=== PATIENT | female | born 1975 | race Caucasian/White ===

== ENCOUNTER → 2017-08-23 08:29 | Outpatient (CLI) | payer OTHER, SELFPAY ==
--- NOTE | 2017-08-23 08:35 | HPBI_ITS ---
MAMMOGRAPHY - BILATERAL SCREENING REASON FOR EXAM: Female, 42 years old. Routine annual screening examination. PERTINENT HISTORY: Mother with breast cancer. TECHNIQUE: Digital bilateral breast scott (3D mammographic acquisition) in the CC and MLO projections. 2-D mediolateral oblique (MLO) and craniocaudad (CC) views of both breasts were obtained. CAD: Full Field Digital Mammography with Computer Added Detection was performed. COMPARISON: Comparison is made with prior study dated August 19, 2016 and July 20, 2015. FINDINGS: Breast Composition: There are scattered areas of fibroglandular density. There are no dominant masses or suspicious calcifications. Stable bilateral benign appearing axillary lymph nodes. No other significant abnormalities are identified. There has been no significant change since the prior study. HPBI/SCREENING MAMM (CAD), BILAT IMPRESSION: Stable bilateral screening mammogram. Yearly follow-up mammogram recommended. (A) ASSESSMENT CATEGORY: BIRADS Category 2: Benign. A letter regarding these results will be sent to the patient by the facility within 30 days. Approximately 10% of breast cancers are not detected by mammography. A normal mammogram should not delay biopsy of a clinically suspicious abnormality. [id number] Electronically Signed: Franck Sandy MD at 8:16 EDT Tel [phone], Service support ,
== END ==
PROVIDERS: Visit Provider Obstetrics & Gynecology
DX: Z12.31 Encounter for screening mammogram for malignant neoplasm of breast (principal)
CPT/HCPCS: 77063; 77067

== ENCOUNTER → 2021-04-04 | Outpatient (CLI) | payer OTHER, SELFPAY ==
[2021-04-09 15:23] LABS: HPV Reflexed? NOT INDICATED
== END | disposition home or self-care (01) ==
LOC: LABSPEC 12:23
PROVIDERS: Visit Provider Obstetrics & Gynecology
DX: Z12.4 Encounter for screening for malignant neoplasm of cervix (principal)
CPT/HCPCS: 88175; G0145

== ENCOUNTER → 2021-04-27 15:34 | Outpatient (CLI) | payer SELFPAY, OTHER ==
--- NOTE | 2021-04-27 15:38 | BI_ITS ---
MAMMOGRAPHY - BILATERAL SCREENING REASON FOR EXAM: Female, 45 years old. Routine annual screening examination. PERTINENT HISTORY: Mother with breast cancer. TECHNIQUE: Digital bilateral breast hernan (3D mammographic acquisition) in the CC and MLO projections. 2-D mediolateral oblique (MLO) and craniocaudad (CC) views of both breasts were obtained. CAD: Full Field Digital Mammography with Computer Added Detection was performed. COMPARISON: Comparison is made with prior study dated 08/23/2017 and 08/19/2016. FINDINGS: Breast Composition: There are scattered areas of fibroglandular density. There are no dominant masses or suspicious calcifications. Stable small benign-appearing bilateral axillary lymph nodes. No other significant abnormalities are identified. There has been no significant change since the prior study. BI/SCRN MAMM (CAD)W/HERNAN BILAT IMPRESSION: Stable bilateral screening mammogram. Yearly follow-up mammogram recommended. (A) ASSESSMENT CATEGORY: BIRADS Category 2: Benign. A letter regarding these results will be sent to the patient by the facility within 30 days. Approximately 10% of breast cancers are not detected by mammography. A normal mammogram should not delay biopsy of a clinically suspicious abnormality. [id number] Electronically Signed: Franck Sandy MD at 8:21 EST , Service support ,
== END ==
PROVIDERS: Referring Provider Obstetrics & Gynecology; Visit Provider Obstetrics & Gynecology
DX: Z12.31 Encounter for screening mammogram for malignant neoplasm of breast (principal)
CPT/HCPCS: 77063; 77067

== ENCOUNTER 2023-04-14 13:13 | Emergency (ER) | payer OTHER, SELFPAY ==
[2023-04-14 13:13] VITALS: BP 160/88; PULSE 63; RESP 16; TEMP 36.4; O2SAT 98; BMI 29.0
--- NOTE | 2023-04-14 13:35 | EKG12_ITS ---
Test Reason : Blood Pressure : / mmHG Vent. Rate : 060 BPM Atrial Rate : 060 BPM P-R Int : 122 ms QRS Dur : 088 ms QT Int : 424 ms P-R-T Axes : 055 -08 026 degrees QTc Int : 424 ms Normal sinus rhythm Normal ECG Confirmed by LUNA FERNANDEZ MD ([id number]), purchasing expeditor ZONIA RICHTER ([id number]) on 04/16/2023 6:53:29 AM Referred By: Confirmed By:LUNA FERNANDEZ MD
[2023-04-14] MEDS: 0.9% Normal Saline (1000mL) 1,000 ML 1000 ML IV (13:55)
--- NOTE | 2023-04-14 14:01 | ED.VIS.FEGU ---
HPI <ASHISH Flor - Last Filed: 04/14/23 16:24> HPI - Female History of Present Illness Chief Complaint: Vag Bld, Preg Narrative Narrative: Patient is a 47-year-old female with no significant medical history who is a 6 para 4, last time she gave was in 2013. Patient states that over the last year she has been having irregular menses. For the last 3 days, patient states she has been having significant amount of vaginal bleeding with blood clots. Today, the patient just got done doing her laundry, she then sat down, and almost had a near syncopal episode. Secondary to this pain, she is here for evaluation. PFSH <ASHISH Flor - Last Filed: 04/14/23 16:24> PFSH Home Medications vits,calcium no.78-iron fumarate-folic acid 29 mg-1 mg tablet (Prenatabs FA) 1 tab PO DAILY 09/21/13 [History Last Taken 02/06/14 12:00] oxycodone-acetaminophen 5 mg-325 mg tablet 1 - 2 tab PO Q4H PRN PRN Moderate Pain ##30 02/09/14 [Rx Last Taken Unknown] sennosides 8.6 mg-docusate sodium 50 mg tablet (Stool Softener-Stimulant Laxative) 100 mg (1.7065 x 8.6-50 mg) PO DAILY PRN Constipation ##60 02/09/14 [Rx Last Taken Unknown] cephalexin 500 mg capsule 500 mg PO TID #21 caps 04/14/23 [Rx Last Taken Unknown] Allergy/AdvReac Type Severity Reaction Status Date / Time apple Allergy Food Verified 04/14/23 13:15 Allergy parrish [cherries] Allergy Food Verified 04/14/23 13:15 Allergy pecan nut Allergy Food Verified 04/14/23 13:15 Allergy walnut Allergy Food Verified 04/14/23 13:15 Allergy Social History Smoking Status: Never smoker ROS <ASHISH Flor - Last Filed: 04/14/23 16:24> ROS ED ROS Narrative Constitutional: Negative for fever, chills, weight loss, weakness Eyes: Negative for vision loss, vision change, double vision ENT: Negative for any sore throat, ear pain, congestion Cardiovascular: Negative for any chest pain, tightness, palpitations Respiratory: Negative for any cough, sputum production, hemoptysis, dyspnea, dyspnea on exertion, orthopnea Gastrointestinal: Negative for any abdominal pain, nausea, vomiting, diarrhea, constipation, blood in stool, blood in vomit : Negative for any urinary frequency, dysuria, retention, blood in urine. Positive for vaginal bleeding Muscle skeletal: Negative for any muscle joint pain, stiffness, myalgias, arthralgias, neck pain, back pain Neurological: Negative for any headache, syncope, numbness or tingling, dizziness. Positive for near syncope Skin: Negative for any rashes, lumps, itching, abrasions, lacerations Psychiatric: Negative for any depression, anxiety, stress, suicidal ideation, homicidal ideation Hematologic: Negative for any easy bruising, excessive bruising, easy bleeding Allergies: Negative for any eczema, hives, rash EXAM <ASHISH Flor - Last Filed: 04/14/23 16:24> Physical Exam Narrative Exam Narrative: Vital signs reviewed. HEET: Head normocephalic atraumatic, TMs clear bilaterally. Posterior pharynx is clear, moist mucous membranes. Nares clear bilaterally. Neck: Supple with no lymphadenopathy or tenderness. No signs of meningismus, negative jolt sign. Cardiac: Regular rate and rhythm no murmurs gallops or rubs, equal peripheral pulses bilaterally. Respiratory: Lungs clear to auscultation bilaterally. No chest tenderness. Abdomen: Soft, nontender, nondistended. No abdominal bruit or pulsatile masses. No hepatosplenomegaly Extremities: No peripheral edema, no signs of gross trauma or deformity. Active full range of motion of all extremities. Neuro: Cranial nerves II through XII intact, no focal neurological deficits. Skin: Clean dry and intact with no rash, purpura, petechiae, vesicles or pustules. Backs/flank: No CVA tenderness, no midline spinal tenderness, no deformity. Psych: Normal mood and affect. No SI, HI or acute psychosis. Const Vital Signs: 04/14/23 13:13 04/14/23 14:13 04/14/23 15:54 Temperature 97.5 F L Temperature Source Temporal Pulse Rate 63 Respiratory Rate 16 18 18 Blood Pressure 160/88 H Blood Pressure Mean 112 Pulse Ox 98 Oxygen Delivery Method Room Air Positive well nourished and well developed General Appearance ED: well developed <Dr. Al Benavides DO - Last Filed: 04/14/23 15:19> Physical Exam Const Vital Signs: 04/14/23 13:13 04/14/23 14:13 04/14/23 15:54 Temperature 97.5 F L Temperature Source Temporal Pulse Rate 63 Respiratory Rate 16 18 18 Blood Pressure 160/88 H Blood Pressure Mean 112 Pulse Ox 98 Oxygen Delivery Method Room Air MDM <ASHISH Flor - Last Filed: 04/14/23 16:24> MDM Lab Data Labs: Laboratory Results - last 24 hr 04/14/23 13:46 WBC 7.6 RBC 4.03 L Hgb 12.3 Hct 37.6 MCV 93.3 MCH 30.5 MCHC 32.7 RDW Std Deviation 41.5 RDW Coeff of Jaylan 12.0 Plt Count 246 MPV 9.9 Immature Gran % (Auto) 0.400 Neut % (Auto) 75.6 H Lymph % (Auto) 16.6 L Bourbon % (Auto) 4.8 Eos % (Auto) 2.2 Baso % (Auto) 0.4 Absolute Neuts (auto) 5.8 Absolute Lymphs (auto) 1.27 Nucleated RBC % 0 Sodium 139 Potassium 3.8 Chloride 104 Carbon Dioxide 32.0 Anion Gap 3 L BUN 11 Creatinine 0.61 Estim Creat Clear Calc 101.49 Est GFR (MDRD) Af Amer 134 Est GFR (MDRD) Non-Af 111 BUN/Creatinine Ratio 18.0 Glucose 109 H Calcium 8.8 Serum , Qual NEGATIVE Urine Color Red Urine Clarity Cloudy Urine pH 6.5 Ur Specific [place] 1.015 Urine Protein 100 H Urine Glucose (UA) Normal Urine Ketones 5 H Urine Occult Blood 250 H Urine Nitrite Positive H Urine Bilirubin Negative Urine Urobilinogen 1 H Ur Leukocyte Esterase 100 H Urine RBC 25-50 SEEN Urine WBC 10-25 SEEN Ur Squamous Epith Cells 0-5 SEEN Urine Bacteria 1+ Urine Mucus 0 SEEN Blood Type O POSITIVE Antibody Screen NEGATIVE EKG EKG shows a rate of 60 bpm, SD 122 ms, QRS duration 88 ms, no acute ST elevation, no acute infarct noted: Attestation: I personally reviewed and interpreted this EKG as follows: Treatment and Re-Evaluation Narrative: Patient appears generally well, patient appears nontoxic, vital signs are stable. Presenting to the emergency department for significant vaginal bleeding for the last 3 days. Patient will receive basic laboratory values concerning for any new onset anemia, patient received electrolytes, as well as a type and screen. Urinalysis will be cleared to rule out any UTI. Patient will receive a serum to ensure there is no . Patient's laboratory values show a normal CBC with a hemoglobin of 12.3, hematocrit 37.6. Patient's laboratory values were unremarkable, patient's serum was negative. Patient's urinalysis was positive for infection with positive nitrites, 25-50 RBCs, 10-25 white blood cells, 1+ bacteria. This will be sent for culture. Patient be started on Keflex. At this time, patient is stable. Vital signs remained stable, patient is nontachycardic. Patient will follow-up this upcoming Friday with her [employer]. She was given strict return precaution. At this time, is no evidence of any severe hemorrhage, anemia. Patient be diagnosed with dysmenorrhea, UTI. <Dr. Al Benavides, DO - Last Filed: 04/14/23 15:19> [facility] Narrative Medical decision making narrative: I have personally performed a face to face assessment of the patient and have reviewed the ELIANA Note. I performed a substantive portion of the visit including all aspects of the following. My garibay findings include: History: Patient presents with vaginal bleeding that has been getting worse over the past few days. Patient states that she is passing some clots. Patient admits to some mild pain over the lower abdomen. Patient denies any back pain. Patient denies any nausea or vomiting. Patient denies any dysuria. Patient denies any fevers or chills. Exam: Vital signs are stable. Patient is afebrile. Patient is in no acute distress. Oral mucosa is pink and moist. Neck is supple. Trachea is midline. There is no JVD. Heart was regular rate and rhythm. Lungs are clear and equal bilaterally. Abdomen is soft. Bowel sounds are normal. There is mild suprapubic tenderness. There is no rebound or guarding noted. Cranial nerves II through XII are intact. There are no focal motor or sensory deficits noted. Medical Decision Making: Differential diagnosis includes dysfunctional uterine bleeding, anemia, ectopic , and ovarian cyst. CBC will be obtained to assess for leukocytosis and anemia. Basic metabolic profile will be obtained to assess for electrolyte abnormality and renal function. Urinalysis will be obtained to assess for urinary tract infection and hematuria. Serum hCG will be obtained to assess for . Type and screen will be obtained to assess for blood type. Patient was given IV fluids. CBC was reviewed and was within normal limits. Basic metabolic profile was reviewed and was within normal limits. Serum hCG was reviewed and was negative. Urinalysis was reviewed. There are positive nitrites with a leukocyte esterase of 100. Occult blood was 250. There are 25-50 red blood cells and 10-25 white blood cells. There is 1+ bacteria. Urine culture was ordered. Patient was given a dose of Rocephin here. Patient was given a prescription for Keflex. Patient was instructed to follow-up with her [employer] in 3 to 5 days. Patient understood and was agreeable with the plan. All questions were answered. Lab Data Labs: Laboratory Results - last 24 hr 04/14/23 13:46 WBC 7.6 RBC 4.03 L Hgb 12.3 Hct 37.6 MCV 93.3 MCH 30.5 MCHC 32.7 RDW Std Deviation 41.5 RDW Coeff of Jaylan 12.0 Plt Count 246 MPV 9.9 Immature Gran % (Auto) 0.400 Neut % (Auto) 75.6 H Lymph % (Auto) 16.6 L [place] % (Auto) 4.8 Eos % (Auto) 2.2 Baso % (Auto) 0.4 Absolute Neuts (auto) 5.8 Absolute Lymphs (auto) 1.27 Nucleated RBC % 0 Sodium 139 Potassium 3.8 Chloride 104 Carbon Dioxide 32.0 Anion Gap 3 L BUN 11 Creatinine 0.61 Estim Creat Clear Calc 101.49 Est GFR (MDRD) Af Amer 134 Est GFR (MDRD) Non-Af 111 BUN/Creatinine Ratio 18.0 Glucose 109 H Calcium 8.8 Serum , Qual NEGATIVE Urine Color Red Urine Clarity Cloudy Urine pH 6.5 Ur Specific [place] 1.015 Urine Protein 100 H Urine Glucose (UA) Normal Urine Ketones 5 H Urine Occult Blood 250 H Urine Nitrite Positive H Urine Bilirubin Negative Urine Urobilinogen 1 H Ur Leukocyte Esterase 100 H Urine RBC 25-50 SEEN Urine WBC 10-25 SEEN Ur Squamous Epith Cells 0-5 SEEN Urine Bacteria 1+ Urine Mucus 0 SEEN Blood Type O POSITIVE Antibody Screen NEGATIVE Discharge Plan Triage Chief Complaint: Vag Bld, Preg ED Midlevel Provider: Aslanides,Omar ED Provider: Al Benavides Dx/Rx/DC Orders Clinical Impression: Urinary tract infection, Dysmenorrhea, Abnormal vaginal bleeding Instructions: ED Dysfunctional Uterine Bleeding, ED MENSTRUAL CRAMPING, ED Urinary Retention, Female Prescriptions: New cephalexin 500 mg capsule 500 mg PO TID Qty: 21 0RF No Action sennosides-docusate sodium [Stool Softener-Stimulant Laxat] 1 TABLET tablet 100 mg PO DAILY PRN (Reason: Constipation) Qty: 60 0RF oxycodone-acetaminophen 1 TABLET tablet 1 - 2 tab PO Q4H PRN PRN (Reason: Moderate Pain ) Qty: 30 0RF vit,[id number] [Prenatabs FA] 1 TABLET tablet 1 tab PO DAILY Patient Comments: pt uses a pnv 3x's day - from [employer] , has folic acid and DHA Primary Care Provider: Lindsay Bolton Referrals: Care Physician,No Primary [Non-Staff] - Activity Restrictions/Additional Instructions: Please follow-up with your [employer] this week. Return for worsening uncontrolled bleeding. Take antibiotics until finished. Disposition Disposition: Home, Self Care
[2023-04-14 14:07] LABS: Mucous, Urine 0 SEEN /hpf (<or=2+)
[2023-04-14 14:10] LABS: Absolute Lymphocyte Count 1.27 X10^3/uL (0.83-4.51); Absolute Neutrophil Count 5.8 X10^3/uL (2.0-7.7); Basophil# 0.03 X10^3/uL; Basophil% 0.4 % (0-1); Eosinophil# 0.17 X10^3/uL; Eosinophils% 2.2 % (0-5); Hematocrit 37.6 % (37-47); Hemoglobin 12.3 g/dL (12.0-15.0); Lymphocyte # 1.27 X10^3/ul (0.83-4.51); Lymphocyte % 16.6 % (19-41); Mean Corp Hgb Conc 32.7 g/dL (32-36); Mean Corpuscular Hgb 30.5 pg (27.0-32.0); Mean Corpuscular Volume 93.3 fL (81-99); Mean Platelet Vol. 9.9 fl (6.2-12.0); Monocyte# 0.37 X10^3/uL; Monocyte% 4.8 % (0-10); NRBC Flagged by Analyzer 0 % (0-5); Neutrophil # 5.76 X10^3/uL (2.7-7.7); Neutrophil % 75.6 % (47-70); Platelet Count 246 K/mm3 (150-450); RBC Distribution Width SD 41.5 fl (35.1-43.9); Red Blood Count 4.03 M/mm3 (4.2-5.4); White Blood Count 7.6 K/mm3 (4.4-11.0)
[2023-04-14 14:11] LABS: Color, Urine Red (Yellow); Glucose, Dipstick Normal (Normal); Ketone-Dipstick 5 mg/dl (Negative); Leukocyte Esterase-Dipstick 100 /ul (Negative); Nitrite-Dipstick Positive (Negative); Occult Blood-Urine 250 /ul (Negative); Protein-Dipstick 100 mg/dl (Negative); Specific Gravity, Urine 1.015 (1.002-1.030); Urine Bilirubin Dipstick Negative (Negative); Urine Clarity Cloudy (Clear); Urine Urobilinogen 1 mg/dl (Normal); Urine pH 6.5 (5.0 - 8.0)
[2023-04-14 14:13] VITALS: RESP 18
[2023-04-14 14:17] LABS: Bacteria 1+ /hpf (None Seen); Red Blood Cells-Urine 25-50 SEEN /hpf (0-5); White Blood Cells 10-25 SEEN /hpf (0-5)
[2023-04-14 14:18] LABS: Squamous Epithelial Cells - UA 0-5 SEEN /hpf (5-10)
[2023-04-14 14:25] LABS: Anion Gap 3 (5-15); BUN 11 mg/dL (7-18); Calcium,Total 8.8 mg/dL (8.5-10.1); Chloride 104 mmol/L (98-107); Creatinine, Serum 0.61 mg/dL (0.55-1.02); EST Glomerular Filtration Rate 111 mL/min (>60); Est Glom Filt Rate - Afr Amer 134 mL/min (>60); Estimated Creatinine Clearance 101.49 ml/min; Glucose 109 mg/dL (74-106); Potassium 3.8 mmol/L (3.5-5.1); Sodium Level 139 mmol/L (136-145)
[2023-04-14 14:28] LABS: Internal QC Validated? YES +Cl - CLEAR BKGD; Pregnancy, Serum, hCG Quali. NEGATIVE Negative
[2023-04-14 15:54] VITALS: RESP 18
[2023-04-14] MEDS: Cephalexin 250 MG Capsule 500 MG PO (16:37)
== END 2023-04-14 16:42 | disposition home or self-care (01) ==
PROVIDERS: Nurse Practitioner; Emergency Provider Emergency Medicine; PCP Family Medicine; Visit Provider Emergency Medicine
DX: N39.0 Urinary tract infection, site not specified (principal); N93.9 Abnormal uterine and vaginal bleeding, unspecified; N94.6 Dysmenorrhea, unspecified
CPT/HCPCS: 80048; 81001; 84703; 85025; 86850; 86900; 86901; 87086; 93005; 96360; 99282; J7030; A4216

== ENCOUNTER 2023-06-13 05:50 | Day surgery (SDC) | payer SELFPAY, OTHER ==
--- NOTE | 2023-06-13 | EMB_PTH ---
PATHOLOGY RESULTS PATIENT: BRITTANY COOPER LOC: [facility] [place] U#:[id number] AGE/SX: 47/F ROOM: RE06/13/[address]: Dr. Destiney Calderon DO : 1975 BED: DIS: 06/13/2023 SPEC #: [id number] RECD: 06/13/23 12:02 STATUS: KEENAN MICKY #: [id number] [place]: 06/13/23 00:[address]: Destiney Calderon DEPT: SURGICAL PATHOLOGY RECD BY: Jessi Tavarez ENTERED: 06/13/23 12:05 SP TYPE: ENDOM BX/C LILLIANA DR: Dr. 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 Rare fragments of endocervix with metaplasia. Rare fragment of benign squamous mucosa. AM:samuel 06/17/2023 MICROSCOPIC DESCRIPTION Slides are reviewed. GROSS DESCRIPTION Received in fixative is one container labeled with the patient's name and designated endometrial curettings. The specimen consists multiple fragments of hemorrhagic soft tissue that in aggregate measure 4.0 x 3.0 x 0.3 cm. The entire specimen is submitted in two cassettes. / SJ:samuel 06/13/2023 TC:5 CPT: 97977
--- OUTSIDE RECORDS SUMMARY | 2023-06-13 05:53 | XMS RPT_ITS | CCD ---
Author Name Unknown Address [address] [facility] [address] [place] [address] Organization [facility] Care Team Providers Care General Assembler Installer Name Role Phone HERNÁN GUTIERREZ MD Admitting Unavailable HERNÁN GUTIERREZ MD Primary Care Unavailable HERNÁN GUTIERREZ MD Consulting Unavailable HERNÁN GUTIERREZ MD Attending Unavailable PROVIDER, UNKNOWN Consulting Unavailable PROVIDER, UNKNOWN Consulting Unavailable PROVIDER, UNKNOWN Consulting Unavailable MAYLIN SHARMA Admitting Unavailable CHANI SHARMARY T Primary Care Unavailable MAYLIN SHARMA Attending Unavailable HERNÁN GUTIERREZ MD Consulting Unavailable PROVIDER, UNKNOWN Consulting Unavailable PROVIDER, UNKNOWN Consulting Unavailable PROVIDER, UNKNOWN Consulting Unavailable Unavailable Primary Care Provider Unavailabl e NONI, ELANA Attending Unavailable SYED CALDERON Attending Unavailable NONI, ELANA Attending Unavailable NONI, ELANA Referring Unavailable NONI, ELANA Referring Unavailable Allergies Allergy Classification Reported Allergen(s) Allergy Type Date of Onset Reaction(s) Facility (9 sources) tree nut, unspecified; Translations: [TREE NUTS] Drug Allergy 04-01-2023 Swelling, Itching, Shortness of Breath [facility] Medications Completed/Discontinued Medications Medication Drug Class(es) Dates Sig (Normalized) Sig (Original) norethindrone acetate 5 mg oral tablet (4 sources) Start: 05-15-2023 take 1 tablet by mouth once daily norethindrone (AYGESTIN) 5 mg tablet Take 1 tablet by mouth once daily. 30 tablet 0 05/15/2023 Active Problems Problem Classification Problem Date Documented Date Episodic/Chronic Conditions associated with dizziness or vertigo (3 sources) Benign paroxysmal vertigo, bilateral; Translations: [Benign paroxysmal vertigo, bilateral] Onset: 01-15-2022 Episodic Immunizations and screening for infectious disease (2 sources) Patient encounter status; Translations: [Encounter for screening for human papillomavirus (HPV)] 04-01-2023 Episodic Menstrual disorders (3 sources) Irregular periods; Translations: [Irregular menstruation, unspecified] Onset: 04-18-2023 04-01-2023 Chronic Nonmalignant breast conditions (1 source) Breast finding ; Translations: [Dense breast tissue] 04-01-2023 Episodic Other screening for suspected conditions (not mental disorders or infectious disease) (2 sources) Cancer cervix screening status; Translations: [Encounter for screening for malignant neoplasm of cervix] Onset: 04-18-2023 04-01-2023 Episodic Unclassified (1 source) Dense breast tissue; Translations: [Dense breast tissue] Onset: 04-18-2023 Results Test Name Value Interpretation Reference Range Facil ity Vital Signs Date Time Vital Sign Value Performing Clinician Facgiulia litmiguel 04-01-2023 10:59-0400 Body height 164 cm Elana Roanoke LADLE POURER.WEB WEAVER Work Phone: [facility] 04-01-2023 10:59-0400 Body weight 82.1 kg Elana Roanoke LADLE POURER.WEB WEAVER Work Phone: [facility] 04-01-2023 10:59-0400 Diastolic blood pressure 84 mm[Hg] Elana Roanoke LADLE POURER.WEB WEAVER Work Phone: [facility] 04-01-2023 10:59-0400 Systolic blood pressure 130 mm[Hg] Elana Noni LADLE POURER.WEB WEAVER Work Phone: [facility] Encounters Encounter Date Encounter Type Care Provider Facility Start: 06-02-2023 End: 06-02-[address] [facility] Facility:[facility] Start: 05-26-2023 Telephone encounter Marcela Katz MD Work Phone: OB/Gynecology Procedures Date Procedure Procedure Detail Performing Clinician Start: 04-18-2023 Us transvaginal Elana cordova LADLE POURER.WEB WEAVER Work Phone: Plan of Treatment Date Care Activity Detail Author Start: 04-01-2028 HPV Testing HPV Testing [facility] Start: 04-01-2028 Pap Testing Pap Testing [facility] Start: 04-18-2024 Mammography Mammogram Screening [facility] Start: 02-14-2023 Influenza [facility] Start: 06-16-2022 Depression Assessment Depression Assessment [facility] Start: 2019 Cologuard (FIT-DNA) Cologuard (FIT-DNA) [facility] Start: 2019 Colonoscopy Colonoscopy [facility] Start: 2019 Colorectal Cancer Screening Colorectal Cancer Screening [facility] Start: [address] Colonography [facility] Start: 2019 Diabetes Screening Diabetes Screening [facility] Start: 2019 Fecal Occult Blood Fecal Occult Blood [facility] Start: 2019 Lipid 1996 panel - Serum or Plasma Lipid Screening [facility] Start: 2019 Sigmoidoscopy Sigmoidoscopy [facility] Start: 2014 Mammography Mammogram Screening [facility] Start: 08-24-2007 Pap Testing Pap Testing [facility] Start: 2004 HPV Testing HPV Testing [facility] Start: 1993 Urine microalbumin profile DTaP,Tdap,Td Vaccine (1 - Tdap) [facility] Start: 1992 Hepatitis C Screening Hepatitis C Screening [facility] Start: 1992 HIV Screening HIV Screening [facility] Start: 02-02-1975 Covid-19 Vaccine (#1) Covid-19 Vaccine (#1) [facility] Start: 1974 Hepatitis B Vaccine (1 of 3 - 3-dose series) Hepatitis B Vaccine (1 of 3 - 3-dose series) [facility] End: 04-30-2024 FELICITAS SCREENING W HERNAN FELICITAS SCREENING W HERNAN Radiology Routine Encounter for screening mammogram for breast cancer Dense breast tissue 1 Occurrences starting 04/01/2023 until 04/30/2024 [facility] Work Phone: Payers Date Payer Category Payer Unknown 119 2022 Unknown [facility] [employer] [id number] 2022-Present [address] [place] [address] Indemnity [id number] 1974 Unknown [id number] 1974 Unknown [id number] Social History Date Type Detail Facility [facility]: [facility] Start: 04-01-2023 Tobacco use and exposure Smoke less tobacco non-user [facility] Start: 04-01-2023 Alcohol intake Current non-dr audio director of alcohol (finding) [facility] Start: 04-01-2023 History of Social function [facility] Start: 04-01-2023 Tobacco use panel [facility] National Score (1-10 0), lower number is lower risk 32 [facility] Start: 1975 Sex Assigned At Not on file C [facility] Clinical Notes 04-01-2023 to 06-02-2023 Telephone Encounter - Emily Preciado RN - 05/26/2023 10:53 AM ESTTelephone Encounter - Elana Cheney APRN.WEB WEAVER - 05/26/2023 10:49 AM ESTLetter - Coordinator, Mammography - 04/18/2023 11:31 AM EDT Note Date & Type Note Facility 06-02-2023 Note HNO ID: [id number] Author: Syed Calderon MD Service: ? Author Type: Physician Type: Progress Notes Filed: 06/02/2023 5:47 PM Note Text: DATE OF SERVICE: June 02, 2023 PROBLEM: DUB, uterine polyp PAST SURGICAL HISTORY: PAST SURGICAL HISTORY Procedure Laterality Date - DILATION AND CURETTAGE DXAND/THER NONOBSTETRIC Dilation AND curettage - LAPS ABD PRTMANDOMENTUM DX W/WO SPEC BR/WA SPX Laparoscopy - [facility] INCL POST CARE PAST MEDICAL HISTORY: PAST MEDICAL HISTORY Diagnosis Date - NEGATIVE MEDICAL HISTORY SUBJECTIVE: Daily bleeding. Light while taking Aygestin BID. No heavy bleeding at this time SOCIAL HISTORY: Social History Tobacco Use - Smoking status: Never - Smokeless tobacco: Never Substance Use Topics - Alcohol use: No - Drug use: No Pelvic US: RESULT: Uterus: -Size: 8.6 x 5.6 x 6.5 cm -Orientation: Retroverted -Endometrial echo complex: Evaluation of the endometrium was adequate. Suggestion of a polyp at the fundus measuring up to 1 cm. The endometrial echo complex measured 1.0 cm. -Cervix: Nabothian cysts present, otherwise unremarkable. -Adenomyosis assessment: There are no sonographic findings of adenomyosis. -Fibroids: There are no fibroids. Right Ovary: 2.8 x 2.3 x 2.4 cm - Normal sonographic appearance with physiologic follicles. Doppler imaging showed normal arterial and venous flow throughout the ovary. Left Ovary: 3.6 x 2.7 x 3.3 cm - Normal sonographic appearance with physiologic follicles. Doppler imaging showed normal arterial and venous flow throughout the ovary. Free Fluid: No abnormal free fluid is present. OBJECTIVE: VITALS: BP 110/70 Pulse 78 Resp 18 Ht 5' 5 (1.651 m) Wt 184 lb 12.8 oz (83.8 kg) LMP 09/23/2014 BMI 30.75 kg/m? HEENT: Normocephalic, atraumatic, Mucus membranes moist without lesions. NECK: Soft and Supple. No adenopathy , thyromegaly or bruits. SKIN: No lesions. CHEST: Clear to auscultation. No wheezes or rales. Good air exchange. HEART: Regular rate and rhythm No S3 or S4. No gallops or rubs. BACK: Nontender with no CVA tenderness. ABDOMEN: Soft, non-tender, non-distended, no masses, no hepatosplenomegaly. LOWER EXTREMITIES: There was no pitting edema, no palpable cords and no skin changes. ASSESSMENT: pre op PLAN: 1) Discussed hysteroscopy, polypectomy, DANDC. She declines progesterone IUD at this time but will consider if bleeding not improved post op. The rationale for the proposed surgery was discussed in addition to risks, benefits, and alternatives. General pre- and post-operative care was reviewed. Questions were answered. After discussion, the patient indicated a desire to proceed with the planned surgery. Syed Calderon DO Medical Decision Making: Problems: Moderate: New problem with uncertain prognosis Risk: Moderate: Decision on minor surgery w/ risk factors Medical Decision Making Level: 4 - Moderate [facility] 05-26-2023 Miscellaneous Notes Patient notified and voiced understanding of below. Emily Preciado RN Yes, she can take the Aygestin twice a day. Elana Cheney APRN.CNP Patient scheduled for surgery 06/13 preop with 06/02. C/o heavy bleeding changing her pad at least every hour sometimes every thirty minutes. Passing clots the size of a quarter and c/o cramping 10/23. Has not taken any motrin/tylenol. Denies CP, dizziness or SOB. Patient aware to call back or go to ED if these symptoms occur. Has been taking the aygestin tablets daily and asking if she can take more than one a day or what else she can do for her bleeding during this time. Please advise. Kennedi Delcid RN documented in this encounter [facility] 05-15-2023 Miscellaneous Notes Patient notified and voiced understanding. Emily Preciado RN Yes, she can take the Aygestin and I will send more in for her. This medication is safe with her history. Elana Cheney APRN.CNP Patient called with c/o heavy bleeding that started last night. Changing her pad every one hour or less. Denies CP, , dizziness, or fatigue. She has some Aygestin tablets left. States it really helped stop her bleeding. Surgery isn't until 06/13 with . Patient asking if it's safe to take the Aygestin up until her surgery date. If so, she would like it sent to [facility] pharmacy in [place]. Also, asking if safe to take with her hx of varicose veins and blood clots in . Francesca Pires RN documented in this encounter [facility] 05-06-2023 Miscellaneous Notes Patient notified. KENNEDI DELCID RN Aygestin sent to pharmacy. Elana Cheney APRN.CNP Patient started bleeding again yesterday. Initially wasn't heavy, but became heavy now the middle of the night. Changing pad about about every 1 hour. Denies chest pain, shortness of breath, dizziness or fatigue. Does feel a little weak. States RM told her to call in with any heavy bleeding and she can prescribe medication to help. [facility] [place]. Please advise. Sandra Lau RN documented in this encounter [facility] 04-25-2023 Note HNO ID: [id number] Author: Elana Cheney APRN.CNP Service: ? Author Type: Nurse Practitioner Type: Progress Notes Filed: 04/25/2023 12:52 PM Note Text: Spoke with pt via phone. Reviewed US results: Suggestion of a polyp at the fundus measuring up to 1 cm. The endometrial echo complex measured 1.0 cm. Discussed hysteroscopy, polypectomy procedure with pt, she would like to proceed with this. Surgery sheet done and given to radiology scheduler. Informed pt that she would be contacted by the office for pre-op and surgery date. Elana Cheney APRN.CNP [facility] 04-22-2023 Miscellaneous Notes Patient notified and voiced understanding. Patient scheduled for phone call from provider this Wednesday 04/25. FYI. Emily Preciado RN Left message for patient to call office. Sandra Lau RN Please let the patient know that her ultrasound shows a polyp in the uterus which is likely the reason for the irregular bleeding and spotting in between. Can you check with patient and see if there is a time that I can call her to discuss her options. And set the visit up as a telephone visit. Elana Cheney APRN.CNP documented in this encounter [facility] 04-18-2023 Note HNO ID: [id number] Author: Jenny Lee RT(R) Service: ? Author Type: Technologist Type: Progress Notes Filed: 04/18/2023 9:32 AM Note Text: Radiology Service Progress Note PATIENT NAME: Brittany Tena DATE OF SERVICE: April 18, 2023 TIME: 9:32 AM PATIENT IDENTITY VERIFICATION COMPLETED USING TWO (2) IDENTIFIERS: Name and Date of confirmed by patient verbally. FALL SCREENING: Has the patient had 2 falls in the last year or 1 fall with injury or currently using an Ambulatory Assistive Device (Walker, Cane, Wheelchair, Crutches, etc.)? No PATIENT GENDER DATA: Female. status: : No status: NO. PATIENT RELEVANT IMPLANT DATA REVIEWED: Not Applicable RADIOLOGY DEPARTMENT: Mammography PERIPHERAL IV DATA: Not applicable SIGNED BY: RT Liana(R) April 18, 2023 9:32 AM [facility] 04-18-2023 Miscellaneous Notes April 18, 2023 PID: [id number] Brittany Tena [address] [place] [address] Dear Darinel, We are pleased to inform you that the results of your recent breast imaging exam on 04/18/2023 are normal. Early detection of cancer is very important. We also understand recommendations regarding breast cancer screening are controversial. Please discuss with your primary care provider which strategy is best for you and whether a mammogram is right for you. Your imaging studies and report will be kept on file at [facility] as part of your permanent medical record and are available for your continuing care. Thank you for allowing us to help in meeting your health care needs. Sincerely, Dr. Jarquin Interpreting Radiologist [facility] (Normal over 40) documented in this encounter [facility] 04-18-2023 Note HNO ID: [id number] Author: Catherine Ramos RDMS Service: ? Author Type: Magneto Electrician Type: Progress Notes Filed: 04/18/2023 11:35 AM Note Text: Radiology Service Progress Note PATIENT NAME: Brittany eTna DATE OF SERVICE: April 18, 2023 TIME: 11:35 AM PATIENT IDENTITY VERIFICATION COMPLETED USING TWO (2) IDENTIFIERS: Name and Date of confirmed by patient verbally. FALL SCREENING: Has the patient had 2 falls in the last year or 1 fall with injury or currently using an Ambulatory Assistive Device (Walker, Cane, Wheelchair, Crutches, etc.)? No PATIENT GENDER DATA: Female. status: : No status: NO. PATIENT RELEVANT IMPLANT DATA REVIEWED: Not Applicable RADIOLOGY DEPARTMENT: Ultrasound PERIPHERAL IV DATA: Not applicable SIGNED BY: Catherine Ramos RDMS RVT April 18, 2023 11:35 AM [facility] 04-18-2023 History of Presen t illness Narrative Radiology Service Progress Note PATIENT NAME: Brittany Tena DATE OF SERVICE: April 18, 2023 TIME: 11:35 AM PATIENT IDENTITY VERIFICATION COMPLETED USING TWO (2) IDENTIFIERS: Name and Date of confirmed by patient verbally. FALL SCREENING: Has the patient had 2 falls in the last year or 1 fall with injury or currently using an Ambulatory Assistive Device (Walker, Cane, Wheelchair, Crutches, etc.)? No PATIENT GENDER DATA: Female. status: : No status: NO. PATIENT RELEVANT IMPLANT DATA REVIEWED: Not Applicable RADIOLOGY DEPARTMENT: Ultrasound PERIPHERAL IV DATA: Not applicable SIGNED BY: Catherine Ramos RDMS RVT April 18, 2023 11:35 AM documented in this encounter [facility] 04-14-2023 Miscellaneous Notes Patient called in and reported she went to [place] ED. Kennedi Delcid RN Left message for patient to call office. KENNEDI DELCID RN She needs to go to the ED for evaluation and blood work. Elana Cheney APRN.CNP Patient called reporting heavy bleeding saturating pads in an hour or less the past three days and passing clots the size of an egg or bigger. Feeling weak but denies any chest pain or sob. Denies any cramping or pain. Patient was supposed to have pelvic ultrasound last Friday but was sick and had to cancel and rescheduled for this Friday. Do you want patient evaluated in office or what recommendations do you have? Please advise. Kennedi Delcid RN documented in this encounter [facility] 04-01-2023 Note HNO ID: [id number] Author: Elana Cheney APRN.CNP Service: ? Author Type: Nurse Practitioner Type: Progress Notes Filed: 04/01/2023 11:37 AM Note Text: Brittany is a 47 year old who presents for an annual gynecologic exam with complaints, irregular bleeding. Menses: irregular cycle every 2-6 weeks with some spotting in between. Contraception: none HPV vaccine: No Last Pap: 08/31/2002 normal HPV: N/A History of abnormal pap: No Last mammogram: done at [facility] normal results Sexually active: Yes Pain with intercourse: No Postcoital bleeding: No Hot flashes: No Night sweats: Yes OB History T0 L0 SAB0 IAB0 Ectopic0 Multiple0 Live Births0 Locks Inspector History LMP: 09/23/2014, Having periods Age at Menarche: Age at First : Age at Menopause: Locks Inspector History Comments: Sexual Activity: Yes; Male Contraception: No contraception data on record PAST MEDICAL HISTORY Diagnosis Date NEGATIVE MEDICAL HISTORY PAST SURGICAL HISTORY Procedure Laterality Date DANDC, DIAG AND/OR THERAPEUTIC Dilation AND curettage L'SCOPE DX W/WO BRUSHINGS/WASHINGS Laparoscopy FAMILY HISTORY Problem Relation Age of Onset Breast Cancer Mother Heart Mother leaky valve Hypertension Father None Daughter None Daughter SOCIAL HISTORY Social History Tobacco Use Smoking status: Never Substance Use Topics Alcohol use: No Drug use: No REVIEW OF SYSTEMS Abdomen: No abdominal pain, nausea, vomiting, diarrhea, or constipation. No bloating, early satiety, indigestion, or increased flatulence. Bladder: No dysuria, gross hematuria, urinary frequency, urinary urgency, or incontinence. Breast: No breast lumps, nipple d/c, overlying skin changes, redness or skin retraction. Allergies and current medication updated:Yes EXAM: LMP 09/23/2014 GENERAL: pleasant, female in no apparent distress HEENT: Normocephalic, atraumatic, mucus membranes moist, and no lesions NECK: Supple, full range of motion, no adenopathy, and thyroid normal DERMATOLOGY: Normal, without lesions, non-icteric, and non-hirsute BREAST: soft, non-tender, symmetric, no dominant mass, normal nipple-areolar complex, no lymphadenopathy, and no nipple discharge CHEST: Normal inspiratory effort ABDOMEN: soft, non-tender, and no masses PELVIC: external genitalia normal, normal Bartholin's glands, urethra, [place]'s glands, no vulvar lesions, no cervical lesions, physiologic discharge present, normal appearing perineal body and perianal region, cervical prolapse 1st degree BIMANUAL: uterus normal size, shape and consistency, no adnexal masses, non-tender, and no cervical motion tenderness RECTOVAGINAL: deferred. NEURO: alert and oriented x3,exam grossly non-focal EXTREMITIES: normal ASSESSMENT/PLAN: 1) Health maintenance: Pap done with HPV. Mammogram ordered. Nutrition, exercise and routine health maintenance exams reviewed. 2) Contraception: none. Contraceptive options reviewed and information provided. 3) STD screening: Declined STD check. 4) Follow up one year or sooner as needed 5) Pelvic US ordered for irregular bleeding Elana Cheney APRN.DAVID [facility] 04-01-2023 History of Presen t illness Narrative Brittany is a 47 year old who presents for an annual gynecologic exam with complaints, irregular bleeding. Menses: irregular cycle every 2-6 weeks with some spotting in between. Contraception: none HPV vaccine: No Last Pap: 08/31/2002 normal HPV: N/A History of abnormal pap: No Last mammogram: done at [facility] normal results Sexually active: Yes Pain with intercourse: No Postcoital bleeding: No Hot flashes: No Night sweats: Yes OB History T0 L0 SAB0 IAB0 Ectopic0 Multiple0 Live Births0 Locks Inspector History LMP: 09/23/2014, Having periods Age at Menarche: Age at First : Age at Menopause: Locks Inspector History Comments: Sexual Activity: Yes; Male Contraception: No contraception data on record PAST MEDICAL HISTORY Diagnosis Date NEGATIVE MEDICAL HISTORY PAST SURGICAL HISTORY Procedure Laterality Date D&C, DIAG AND/OR THERAPEUTIC Dilation & curettage L'SCOPE DX W/WO BRUSHINGS/WASHINGS Laparoscopy FAMILY HISTORY Problem Relation Age of Onset Breast Cancer Mother Heart Mother leaky valve Hypertension Father None Daughter None Daughter SOCIAL HISTORY Social History Tobacco Use Smoking status: Never Substance Use Topics Alcohol use: No Drug use: No REVIEW OF SYSTEMS Abdomen: No abdominal pain, nausea, vomiting, diarrhea, or constipation. No bloating, early satiety, indigestion, or increased flatulence. Bladder: No dysuria, gross hematuria, urinary frequency, urinary urgency, or incontinence. Breast: No breast lumps, nipple d/c, overlying skin changes, redness or skin retraction. Allergies and current medication updated:Yes EXAM: LMP 09/23/2014 GENERAL: pleasant, female in no apparent distress HEENT: Normocephalic, atraumatic, mucus membranes moist, and no lesions NECK: Supple, full range of motion, no adenopathy, and thyroid normal DERMATOLOGY: Normal, without lesions, non-icteric, and non-hirsute BREAST: soft, non-tender, symmetric, no dominant mass, normal nipple-areolar complex, no lymphadenopathy, and no nipple discharge CHEST: Normal inspiratory effort ABDOMEN: soft, non-tender, and no masses PELVIC: external genitalia normal, normal Bartholin's glands, urethra, [place]'s glands, no vulvar lesions, no cervical lesions, physiologic discharge present, normal appearing perineal body and perianal region, cervical prolapse 1st degree BIMANUAL: uterus normal size, shape and consistency, no adnexal masses, non-tender, and no cervical motion tenderness RECTOVAGINAL: deferred. NEURO: alert and oriented x3,exam grossly non-focal EXTREMITIES: normal ASSESSMENT/PLAN: 1) Health maintenance: Pap done with HPV. Mammogram ordered. Nutrition, exercise and routine health maintenance exams reviewed. 2) Contraception: none. Contraceptive options reviewed and information provided. 3) STD screening: Declined STD check. 4) Follow up one year or sooner as needed 5) Pelvic US ordered for irregular bleeding Elana Cheney APRN.CNP documented in this encounter [facility] Diagnosis Irregular menstrual cycle [facility] (narrative)* Diagnostic Procedure Only (Routine) - Authorized Specialty Diagnoses / Procedures Referred By Navjot messina Referred To Contact US IMAGING Diagnoses Irregular menstrual cycle Procedures US FEMALE PELVIS TRANSVAG US TRANSVAGINAL Elana Cheney APRN.CNP [address] [place] [address] [id number] Referral ID Status Reason Start Date Expiration Date Visits Requested Visits Authorized [id number] Authorized Auto-Generat ed Referral 3 04/30/2024 1 1 * Diagnostic Procedure Only (Routine) - Denied Specialty Diagnoses / Procedures Referred By Navjot messina Referred To Contact [facility] Diagnoses Encounter for screening mammogram for breast cancer Dense breast tissue Procedures FELIICTAS SCREENING W HERNAN SCREENING DIGITAL BREAST TOMOSYNTHESIS BI SCREENING MAMMOGRAPHY BI 2-VIEW BREAST INC CAD Elana Cheney APRN.CNP [address] [place] [address] [facility] [address] [place] [address] Referral ID Status Reason Start Date Expiration Date V isits Requested Visits Authorized [id number] Denied Auto-Generate d Referral 04/01/2023 04/30/2024 1 0 [facility] Summary Purpose Family History No Family History Records FoundNo Family History Records FoundNo Family History Records Found Advance Directives No Advanced Directives Records FoundNo Advanced Directives Records FoundNo Advanced Directives Records Found Additional Source Comments INFORMATION SOURCE (unrecogn ized section and content) DATE CREATED AUTHOR AUTHOR'S ORGANIZ ATION 03/18/2022 [facility] DATE CREATED AUTHOR AUTHOR'S ORGANIZ ATION 06/04/2023 [facility] Source Comments (unrecognize d section and content) In the event this informatio n is protected by the Federal Confidentiality of Alcohol and Drug Abuse Patient Records regulations: The Federal rules restrict any use of the information to criminally investigate or prosecute any alcohol or drug abuse patient.[facility] the event this information is protected by the Federal Confidentiality of Alcohol and Drug Abuse Patient Records regulations: The Federal rules restrict any use of the information to criminally investigate or prosecute any alcohol or drug abuse patient.[facility] the event this information is protected by the Federal Confidentiality of Alcohol and Drug Abuse Patient Records regulations: The Federal rules restrict any use of the information to criminally investigate or prosecute any alcohol or drug abuse patient.[facility] the event this information is protected by the Federal Confidentiality of Alcohol and Drug Abuse Patient Records regulations: The Federal rules restrict any use of the information to criminally investigate or prosecute any alcohol or drug abuse patient.[facility] the event this information is protected by the Federal Confidentiality of Alcohol and Drug Abuse Patient Records regulations: The Federal rules restrict any use of the information to criminally investigate or prosecute any alcohol or drug abuse patient.[facility] the event this information is protected by the Federal Confidentiality of Alcohol and Drug Abuse Patient Records regulations: The Federal rules restrict any use of the information to criminally investigate or prosecute any alcohol or drug abuse patient.[facility] the event this information is protected by the Federal Confidentiality of Alcohol and Drug Abuse Patient Records regulations: The Federal rules restrict any use of the information to criminally investigate or prosecute any alcohol or drug abuse patient.[facility] the event this information is protected by the Federal Confidentiality of Alcohol and Drug Abuse Patient Records regulations: The Federal rules restrict any use of the information to criminally investigate or prosecute any alcohol or drug abuse patient.[facility] Reason for Visit (unrecogniz ed section and content) Reason Comments vaginal bleeding Reason Comments Radiology US Specialty Diagnoses / Procedures Referred By Navjot messina Referred To Contact [facility] Diagnoses Irregular menstrual cycle Procedures US FEMALE PELVIS TRANSVAG US TRANSVAGINAL Elana Cheney APRN.[employer] [address] [place] [address] [id number] Referral ID Status Reason Start Date Expiration Date V isits Requested Visits Authorized [id number] Closed Auto-Generate d Referral 04/01/2023 04/30/2024 1 1 Reason Comments Results Reason Comments Heavy Bleeding Reason Comments heavy aub FOR RECORDS PERTAINING TO PATIENTS WHO ARE OR HAVE BEEN ENROLLED IN A CHEMICAL DEPENDENCY/SUBSTANCEABUSE PROGRAM, SOME INFORMATION MAY BE OMITTED. This clinical summary was aggregated from multiple sources. Caution should be exercised in using it in the provision of clinical care. This summary normalizes information from multiple sources, and as a consequence, information in this document may materially change the coding, format and clinical context of patient data. In addition, data may be omitted in some cases. CLINICAL DECISIONS SHOULD BE BASED ON THE PRIMARY CLINICAL RECORDS. [facility] [employer] [facility]. provides no warranty or guarantee of the accuracy or completeness of information in this document.
[2023-06-13 06:28] VITALS: BP 103/76; PULSE 66; RESP 16; TEMP 36.8; O2SAT 100; BMI 30.4
[2023-06-13 06:34] LABS: Internal QC Validated? YES +Cl - CLEAR BKGD; Pregnancy, Urine Negative Negative
[2023-06-13] MEDS: Lactated Ringers 1,000 ML 15 ML IV (06:36)
[2023-06-13 06:42] LABS: Hematocrit 40.5 % (37-47); Hemoglobin 13.3 g/dL (12.0-15.0); Mean Corp Hgb Conc 32.8 g/dL (32-36); Mean Corpuscular Volume 94.4 fL (81-99); Mean Platelet Vol. 9.6 fl (6.2-12.0); Platelet Count 316 K/mm3 (150-450); RBC Distribution Width CV 12.5 % (11.6-14.6); RBC Distribution Width SD 43.5 fl (35.1-43.9); Red Blood Count 4.29 M/mm3 (4.2-5.4)
--- NOTE | 2023-06-13 08:03 | OP.PCM_ITS ---
Problems Associated Problem List Diagnoses (1) DUB (dysfunctional uterine bleeding): (2) Uterine polyp: Report of Operation Date of Procedure: 06/13/23 Pre-Operative Diagnosis: DUB, uterine polyp Post-Operative Diagnosis: As above Surgery/Procedure Performed:: Hysteroscopy, D&C, polypectomy with Symphion Description of Surgical Findings:: Descent of uterus and cervix to introitus. Enlarged uterine cavity measuring 9 cm in length. Multiple small endometrial polyps noted along fundus of uterus and posterior uterine wall. Endometrium thick appearing Surgeon: Destiney Calderon casting machine service operator: None Type of Anesthesia: MAC Special Medications: None Specimen's removed: Endometrial curettings Drains: None Estimated Blood Loss (mL): < 50 Fluids Replaced: 500 cc fluid deficit Description of Procedure: The patient was taken to the operating room where MAC anesthesia was found to be adequate. She was prepped and draped in the dorsal lithotomy position using yellowfin stirrups. A weighted speculum was placed in the vagina to expose the cervix. The anterior lip of the cervix was grasped with a single-tooth tenaculum. The cervix was already dilated. The Symphion hysteroscope was advanced to the fundus of the uterus and the uterus was distended using normal saline as the distention media. The uterine cavity appeared large and there were multiple small polyps along the fundus and posterior wall of the uterus. The endometrium appeared thickened and polypoid. The Symphion resection device was used to remove the small polyps and perform a curettage. The Symphion hysteroscope was then removed. A sharp curettage was performed. Endometrial curettings were sent to pathology for review. All instruments were removed from the vagina and a vaginal sweep was performed. Bleeding was hemostatic. The patient was taken to the recovery room in stable condition. Instrument sponge counts were correct Grafts/Implants Used: None Procedure Start Time: 07:48 Procedure Stop Time: 08:01 Complications None Admit VTE Documentation VTE Present on Admission: No VTE Mechan Device Prophylaxis: SCD's
[2023-06-13 08:10] VITALS: BP 103/76; BP 97/60; PULSE 53; RESP 16; TEMP 36.2; O2SAT 99
[2023-06-13 08:15] VITALS: BP 103/61; BP 103/76; PULSE 51; RESP 16; O2SAT 99
--- NOTE | 2023-06-13 08:18 | DCINST_ITS ---
Discharge Instructions Diet Discharge Diet: No restrictions Activity Discharge Activity: May Drive (once you are more than 24 hours out from surgery) and May Shower (once you are more than 24 hours out from surgery) May resume sexual activity in: 1-2 weeks (nothing in vagina and no soaking in water while having vaginal bleeding for 1-2 weeks) Weight Bearing Status: Weight bearing as tolerated Lifting Restrictions: none Dressing / Incision Call your doctor if you observe: Fever of 101 or Higher, Coldness, Increased Pain, Numbness or Tingling, Change in Color, Inability to urinate, Inability to have a bowel movement, Using more than 1 pad per hour, Shortness of breath, Dizziness, Fainting spells, Swelling in the ankles, Chest pain, Increased palpit ations (irregular heartbeat), Calf discomfort and Uncontrolled pain Follow Up Care Please Follow Up With: Destiney Calderon DO When: 1-2 weeks Test Results: Test results from this visit will be discussed in further detail at your follow- up appointment, if applicable. Discharge Plan Admission Primary Reason for Your Visit: surgery Attending Provider: Destiney Calderon Primary Care Provider: Lindsay Bolton Instructions Patient Instructions: Dilation and Curettage Discharge Orders/Prescriptions Prescriptions: Discontinued norethindrone (contraceptive) 0.35 mg tablet 0.35 mg PO DAILY Referrals / Follow Up: Lindsay Bolton MD [Primary Care Provider] - Disposition Disposition (needs filled in before D/C Order can be placed): Home, Self Care
[2023-06-13 08:20] VITALS: BP 103/76; BP 96/62; PULSE 52; RESP 16; O2SAT 97
[2023-06-13 08:26] VITALS: BP 101/63; BP 103/76; PULSE 55; RESP 16; TEMP 36.7; O2SAT 98
[2023-06-13 10:02] VITALS: BP 103/76; BP 107/53; PULSE 59; RESP 16; TEMP 36.9; O2SAT 100
== END 2023-06-13 10:32 | disposition home or self-care (01) ==
LOC: SDC 05:51 → AC 05:52
PROVIDERS: Anesthesiology; PCP Family Medicine; Referring Provider Obstetrics & Gynecology; Visit Provider Obstetrics & Gynecology
PROC: 0UB98ZZ Excision of Uterus, Via Natural or Artificial Opening Endoscopic (ICD-10-PCS; CPT 58558; principal; 2023-06-13 07:15)
DX: N93.8 Other specified abnormal uterine and vaginal bleeding (principal); N84.0 Polyp of corpus uteri; Z86.718 Personal history of other venous thrombosis and embolism
CPT/HCPCS: 58558; 00952; 81025; 85027; 86850; 86900; 86901; 88305; J7120; J2405